=== PATIENT | male | born 1960 | race Caucasian/White ===

== ENCOUNTER 2016-05-31 22:42 | Emergency (ER) | payer MEDICARE, OTHER ==
--- NOTE | ~2016-05-31 | US115 ---
[facility] A Service of [facility] RADIOLOGY TEXT RESULTS PATIENT: DIMITRI DA SILVA LOCATION: [facility] : 64 UNIT #: [id number] AGE: [address]: Bandar Parks MD SEX: M ORDER DR: [id number] [facility] [address] [place], [place] [address] [id number] E MR#: [id number] Acc #: [id number] NAME: DIMITRI DA SILVA : 1960 SEX: M STUDY DATE/TIME: 05/31/2016 22:37 UNIT: PHYLLIS ROOM: STUDY DESCRIPTION: US Scrotum and Contents Attending Physician: Bandar Parks M.D. Ordering Physician: Bandar Parks M.D. Primary Care Physician: Phani Marroquin M.D. MEDICAL IMAGING REPORT This report is preliminary unless electronic signature is present EXAM Scrotal ultrasound, including testicular Doppler vascular evaluation, 05/31/2016. HISTORY 55-year-old male in the ED complaining of 4-day history of generalized scrotal pain and swelling. TECHNIQUE Scrotal ultrasound examination using mccarty-scale, spectral Doppler and color flow Doppler ultrasound imaging. FINDINGS Both testes are normal in size and appearance. No mass or other focal testicular lesion is demonstrated. The intrascrotal extratesticular contents are also normal in appearance. There is no epididymis enlargement, intrascrotal mass or significant fluid collection. Doppler evaluation shows normal, bilaterally symmetric testicular blood flow. No evidence of testicular torsion, acute epididymitis or orchitis. IMPRESSION Negative scrotal ultrasound examination. Dictated by... Jorge Luis Varela M.D. THIS IS AN ELECTRONICALLY VERIFIED REPORT Jorge Luis Varela M.D. at 06/01/2016 5:53 AM RGW/jt [facility] A Service [facility] RADIOLOGY TEXT RESULTS PATIENT: DIMITRI DA SILVA LOCATION: [facility] : 64 UNIT #: [id number] AGE: [address]: Bandar Parks MD SEX: M ORDER DR: TD: 05/31/2016 23:32 JOB #: [id number] MEDICAL IMAGING REPORT Page 1 of 1 COPY
== END 2016-06-01 01:09 | disposition home or self-care (01) ==
LOC: CED 22:42
DX: N45.1 Epididymitis (principal); J44.9 Chronic obstructive pulmonary disease, unspecified; F17.200 Nicotine dependence, unspecified, uncomplicated
CPT/HCPCS: 76870; 99284

== ENCOUNTER → 2016-06-30 | Outpatient (CLI) | payer MEDICARE, OTHER ==
--- NOTE | ~2016-06-30 | EKG ---
PATIENT: DIMITRI DA SILVA UNIT #: [id number] Ventricular Rate: 66 BPM Atrial Rate: 66 BPM QRS Duration: 82 ms Q-T Interval: 404 ms QTC Calculation(Bezet): 423 ms Calculated R [place]: 76 degrees Calculated T [place]: 78 degrees Diagnosis Line: Undetermined rhythm Diagnosis Line: Otherwise normal ECG Diagnosis Line: No previous ECGs available Diagnosis Line: Confirmed by RMIA REDDING MD ([id number]) on Diagnosis Line: 07/02/2016 8:44:35 AM INTERPRETING MD: MILADIS WATTS
[2016-06-30 11:12] LABS: HEMATOCRIT 42.5 % (38.0-50.0); HEMOGLOBIN 14.2 gm/dL (13.0-16.0); MEAN CELL VOLUME 86.5 FL (83-96); MEAN CORPUSCULAR HGB CONC 33.5 g/dL (30-36); MEAN PLATELET VOLUME 8.3 FL (6.5-11.5); RED BLOOD COUNT 4.91 X10e (3.90-5.60); WHITE BLOOD COUNT 5.6 X10e3 (4.0-10.5)
[2016-06-30 11:37] LABS: BUN/CREATININE RATIO 7.69; CALCIUM SERUM 8.9 mg/dL (8.4-10.2); CREATININE SERUM 1.3 mg/dL (0.6-1.4); GLOM FILT RATE Estimated 62.3 mL/min (>60)
== END | disposition home or self-care (01) ==
LOC: CLAB 10:37
PROVIDERS: Urology
DX: Z01.818 Encounter for other preprocedural examination (principal); R31.0 Gross hematuria; N45.1 Epididymitis
CPT/HCPCS: 36415; 80048; 85027; 93005